=== PATIENT | female | born 1935 | race American Indian/Alaskan Native ===

== ENCOUNTER 2017-06-20 15:54 | Emergency (ER) | payer MEDICARE ==
[2017-06-20 16:15] VITALS: BP 145/86
[2017-06-20] MEDS ORDERED: TORADOL IM ONE (20:50)
--- NOTE | 2017-06-20 20:55 | Emergency Department Report ---
ED Fall HPI - General Chief Complaint: Extremity Injury, Lower Stated Complaint: KNEE/LEG PAIN Time Seen by Provider: 06/20/17 20:23 Source: patient (grand daughter) Mode of arrival: Ambulatory - History of Present Illness Initial Comments: 81 yO FEMALE WHO WAS WALKING DOWN HER BASEMENT STREPS WHEN SHE FELL DOWN THE LAST FEW STEPS. HER C/O RIGHT KNEE PAIN AND SWELLING, RIGHT THIGH AND RIGHT HIP PAIN. SHE HAS HAD PROBLEMS WITH BOTH HIPS FOR YEARS AND HAS HAD CTS AND MRIS DONE OF BOTH HIPS. SHE WAS TOLD SHE HAS ARTHRITIS AND FEESL SHE IS TOO OLD FOR HIP REPLACEMENT. HER FALL OCCURRED TWO DAYS AGO. -: days(s) (2) Fall From: standing, down stairs (#) When Fall Occurred: # days [employer] (2) Fall Witnessed: yes, by family Place Fall Occurred: home Loss of Consciousness: none Prolonged Down Time?: no Symptoms Prior to Fall: none Location: other (knee,femur,hip on right side) Location - Extremities: Right: Thigh, Knee Severity: moderate Severity scale (0 -10): 9 Quality: sharp, aching Context: tripped/slipped Associated Symptoms: denies - Related Data Home Medications Medication Instructions Recorded Confirmed Last Taken Aspirin [Aspirin TAB] 325 mg PO PRN 05/05/13 05/05/13 05/01/13 Gabapentin 300 mg PO TID 05/05/13 05/05/13 04/11/13 17:00 Ibuprofen 800 mg PO PRN PRN 05/05/13 05/05/13 07/02/12 [place]-3 Fatty Acids/Fish Oil [Fish 1 each PO 05/05/13 05/05/13 05/08/13 Oil] Pantoprazole [Protonix] 40 mg PO QDAY 05/05/13 05/05/13 05/12/13 10:00 metFORMIN [Glucophage] 1,000 mg PO BID 05/05/13 05/05/13 05/12/13 10:00 NIFEdipine [Nifedipine ER] 30 mg PO DAILY 05/13/13 05/13/13 05/12/13 10:00 Previous Rx's Medication Instructions Recorded Last Taken Type Enoxaparin [Lovenox] 40 mg SQ QDAY #14 syringe 05/15/13 Unknown Rx oxyCODONE /ACETAMINOPHEN [Percocet 1 tab PO Q6HR PRN #20 tablet 06/21/17 Unknown Rx 5/325 mg] Allergies Allergy/AdvReac Type Severity Reaction Status Date / Time No Known Allergies Allergy Unverified 05/05/13 13:50 ED Review of Systems ROS: Stated complaint: KNEE/LEG PAIN Other details as noted in HPI Constitutional: denies: chills, fever Eyes: denies: eye pain, eye discharge, vision change ENT: denies: ear pain, throat pain Respiratory: denies: cough, shortness of breath, wheezing Cardiovascular: denies: chest pain, palpitations Endocrine: no symptoms reported Gastrointestinal: denies: abdominal pain, nausea, diarrhea Genitourinary: denies: urgency, dysuria, discharge Musculoskeletal: joint swelling, myalgia (right calf). 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) Hx GERD: Yes (2007) Hx Renal Disease: No Hx Arthritis: Yes Hx Seizures: No - Surgical History Hx Appendectomy: Yes - Family History Family history: hypertension - Social History Smoking Status: Former Smoker Substance Use Type: None - Medications Home Medications: Home Medications Medication Instructions Recorded Confirmed Last Taken Type Aspirin [Aspirin TAB] 325 mg PO PRN 05/05/13 05/05/13 05/01/13 History Gabapentin 300 mg PO TID 05/05/13 05/05/13 04/11/13 17:00 History Ibuprofen 800 mg PO PRN PRN 05/05/13 05/05/13 07/02/12 History [facility]-3 Fatty Acids/Fish Oil [Fish 1 each PO 05/05/13 05/05/13 05/08/13 History Oil] Pantoprazole [Protonix] 40 mg PO QDAY 05/05/13 05/05/13 05/12/13 10:00 History metFORMIN [Glucophage] 1,000 mg PO BID 05/05/13 05/05/13 05/12/13 10:00 History NIFEdipine [Nifedipine ER] 30 mg PO DAILY 05/13/13 05/13/13 05/12/13 10:00 History Enoxaparin [Lovenox] 40 mg SQ QDAY #14 syringe 05/15/13 Unknown Rx oxyCODONE /ACETAMINOPHEN [Percocet 1 tab PO Q6HR PRN #20 tablet 06/21/17 Unknown Rx 5/325 mg] ED Physical Exam - General Limitations: No Limitations General appearance: alert, in no apparent distress - Head Head exam: Present: atraumatic, normocephalic - Eye Eye exam: Present: normal appearance - ENT ENT exam: Present: mucous membranes moist - Neck Neck exam: Present: normal inspection - Respiratory Respiratory exam: Present: normal lung sounds bilaterally. Absent: respiratory distress, wheezes, rales - Cardiovascular Cardiovascular Exam: Present: regular rate, normal rhythm, normal heart sounds. Absent: systolic murmur, diastolic murmur, rubs, gallop - GI/Abdominal GI/Abdominal exam: Present: soft, distended, tenderness, normal bowel sounds - Rectal Rectal exam: Present: deferred - Extremities Exam Extremities exam: Present: normal inspection, tenderness (right knee, swelling around patella,right hip tenderness) - Back Exam Back exam: Present: normal inspection - Neurological Exam Neurological exam: Present: alert, oriented X3 - Psychiatric Psychiatric exam: Present: normal affect, normal mood - Skin Skin exam: Present: warm, dry, intact, normal color, other (old scar over left knee). Absent: rash ED Course Vital Signs 06/20/17 16:11 Temperature 98.2 F Pulse Rate 85 Respiratory 18 Rate Blood Pressure 145/86 O2 Sat by Pulse 96 Oximetry ED Medical Decision Making - Radiology Data Radiology results: report reviewed (XRAY: RIGHT HIP;OA RIGHT KNEE: OA,TISSUE SWELLING. RIGHT FEMUR: NEGATIVE FOR ACUTE) Critical care attestation.: If time is entered above; I have spent that time in minutes in the direct care of this critically ill patient, excluding procedure time. ED Disposition Clinical Impression: Knee pain, acute Qualifiers: Laterality: right Qualified Code(s): M25.561 - Pain in right knee Hip pain, acute Qualifiers: Laterality: right Qualified Code(s): M25.551 - Pain in right hip Osteoarthritis (arthritis due to wear and tear of joints) Qualifiers: Osteoarthritis location: knee Osteoarthritis type: unspecified Laterality: right Qualified Code(s): M17.11 - Unilateral primary osteoarthritis, right knee Disposition: TO HOME OR SELFCARE Is pt being admited?: No Does the pt Need Aspirin: No Condition: Stable Instructions: Arthralgia (ED), Osteoarthritis (ED), Knee Pain (ED) Additional Instructions: PLEASE FOLLOW UP WITH YOUR DR IN 2 DAYS, RETURN TO THE EMERGENCY DEPARTMENT IF NEW SYMPTOMS OCCUR, OR YOUR GETS WORSE OR FOR ANY CONDERNS. SEE YOUR DR ABOUT KNEE AND HIP REPLACEMENT Prescriptions: oxyCODONE /ACETAMINOPHEN [Percocet 5/325 mg] 1 tab PO Q6HR PRN #20 tablet PRN Reason: Pain
--- NOTE | 2017-06-20 23:16 | XRay Report ---
FINAL REPORT PROCEDURE: XR FEMUR 2+V RT TECHNIQUE: RIGHT femur radiographs, AP and lateral views. HISTORY: rt femur pain post fall COMPARISON: No prior studies are available for comparison. FINDINGS: Fracture (s) and/or Dislocation(s): None . Joint space(s): Normal . Soft tissues: Normal . Bone mineralization: Normal . Foreign bodies: None . IMPRESSION: Normal Examination
--- NOTE | 2017-06-20 23:19 | XRay Report ---
FINAL REPORT PROCEDURE: XR HIP 2-3V RT TECHNIQUE: RIGHT hip radiographs, AP and lateral views. HISTORY: Rt hip pain,difficulty walking, trauma from fall COMPARISON: No prior studies are available for comparison. FINDINGS: Fracture (s) and/or Dislocation(s): None . Joint space(s): There is mild degenerative arthrosis of the hip joint.. Soft tissues: Normal . Bone mineralization: Normal . Foreign bodies: None . There is a 3 centimeter calcis mass in the pelvis which could be uterine fibroid. IMPRESSION: There is no fracture or malalignment..
--- NOTE | 2017-06-20 23:29 | XRay Report ---
FINAL REPORT PROCEDURE: XR KNEE 1-2V RT TECHNIQUE: RIGHT knee radiographs, AP and lateral views. CPT 88100 HISTORY: knee pain,trauma to knee from fall COMPARISON: No prior studies are available for comparison. FINDINGS: Fracture (s) and/or Dislocation(s): None . Alignment: Normal . Joint space(s): There is mild degenerative arthrosis of the medial knee compartment and the patellofemoral joint space.. Soft tissues: Normal . Bone mineralization: Normal . Foreign bodies: None . IMPRESSION: There is no fracture or malalignment..
== END 2017-06-21 01:45 | disposition home or self-care (01) ==
LOC: ED 15:54
DX: M17.11 Unilateral primary osteoarthritis, right knee (principal); M25.551 Pain in right hip; I10 Essential (primary) hypertension; K21.9 Gastro-esophageal reflux disease without esophagitis; E11.9 Type 2 diabetes mellitus without complications; Z87.891 Personal history of nicotine dependence; Z90.49 Acquired absence of other specified parts of digestive tract; W10.9XXA Fall (on) (from) unspecified stairs and steps, initial encounter; Y93.89 Activity, other specified; Y99.8 Other external cause status; Y92.009 Unspecified place in unspecified non-institutional (private) residence as the place of occurrence of the external cause
CPT/HCPCS: 73502; 73552; 73560; 96372; 99283; J1885; J2930